=== PATIENT | female | born 1990 | race Caucasian/White ===

== ENCOUNTER 2018-06-23 22:21 | Emergency (ER) | payer OTHER ==
[~2018-06-23] VITALS: Ht 170.2 cm; Wt 68.0 kg
[~2018-06-23 22:21] MED LIST: IBUPROFEN600 MG PO; INDOMETHACIN50 MG PO; METHYLPREDNISOLO4 M1 PO; PERCOCET 5-3251 EACH PO; TRAMADOL HCL50 MG PO
[2018-06-23] MEDS ORDERED: CLINDAMYCIN HC300 MG PO (23:43)
== END 2018-06-24 00:16 | disposition home or self-care (01) ==
LOC: ED 22:21
DX: K04.7 Periapical abscess without sinus (principal); F17.200 Nicotine dependence, unspecified, uncomplicated; Z79.899 Other long term (current) drug therapy
CPT/HCPCS: 96372; 99282-25; J0696

== ENCOUNTER 2019-01-29 02:35 | Emergency (ER) | payer OTHER ==
[~2019-01-29] VITALS: Ht 170.2 cm; Wt 68.0 kg
[~2019-01-29 02:35] MED LIST changes: +BACTRIM DS TAB1 EACH PO; +CLINDAMYCIN HC300 MG PO
== END 2019-01-29 03:00 | disposition home or self-care (01) ==
LOC: ED 02:35
DX: S71.132A Puncture wound without foreign body, left thigh, initial encounter (principal); S39.012A Strain of muscle, fascia and tendon of lower back, initial encounter; F11.23 Opioid dependence with withdrawal; W22.8XXA Striking against or struck by other objects, initial encounter; F17.200 Nicotine dependence, unspecified, uncomplicated
CPT/HCPCS: 99283